=== PATIENT | male | born 1955 | race Caucasian/White ===

== ENCOUNTER 2019-07-03 11:13 | Emergency (ER) | payer BC ==
[2019-07-03 11:33] VITALS: BP 188/91; PULSE 76
[2019-07-03] MEDS ORDERED: Benzocaine 20% Topical Spray UD MUCMEM ONE (11:36)
[2019-07-03] MEDS ORDERED: Lidocaine 2% Viscous Solution 15 ML Cup PO ONE (11:36)
--- NOTE | 2019-07-03 11:36 | EDM.PDOC ---
ED HPI GENERAL MEDICAL PROBLEM - General Chief Complaint: General Stated Complaint: ABCESS TOOTH Time Seen by Provider: 07/03/19 11:19 Source of Information: Reports: Patient History Limitations: Reports: No Limitations - History of Present Illness INITIAL COMMENTS - FREE TEXT/NARRATIVE: HISTORY AND PHYSICAL: History of present illness: Patient is a 64-year-old male who presents to the emergency room today with complaints of dental pain and swelling to the right lower jawline for the past several days. He states that he has attempted to get a hold of the dentists but due to the holidays has not been able to be seen. He states he would like "a strong antibiotic and strong pain medication". He states due to the pain he has not been able to sleep well at night. Patient denies any fever, chills, headache , change in vision, syncope or near syncope. Denies any chest pain, back pain, shortness of breath or cough. Denies any abdominal pain, nausea, vomiting, diarrhea, constipation or dysuria. Has not noted any blood in urine or stool. Patient has been eating and drinking appropriately. Review of systems: As per history of present illness and below otherwise all systems reviewed and negative. Past medical history: As per history of present illness and as reviewed below otherwise noncontributory. Surgical history: As per history of present illness and as reviewed below otherwise noncontributory. Social history: See social history for further information Family history: As per history of present illness and as reviewed below otherwise noncontributory. Physical exam: General: Well-developed and well-nourished 46 showed male. Alert and oriented. Nontoxic appearing and in no acute distress. HEENT: Atraumatic, normocephalic, pupils equal and reactive bilaterally, negative for conjunctival pallor or scleral icterus, mucous membranes moist, gumline swelling and tenderness to right lower jaw, TMs normal bilaterally, throat clear no pillar shifting/swelling, neck supple, nontender, trachea midline. No drooling or trismus noted. No meningeal signs. No hot potato voice noted. Lungs: Clear to auscultation, breath sounds equal bilaterally. Heart: S1S2, regular rate and rhythm without overt murmur Abdomen: Soft, nondistended, obese, nontender. Skin: Intact, warm, dry. No lesions or rashes noted. Extremities: Atraumatic, moves all extremities per self without difficulty or deficits, negative for cords or calf pain. Neurovascular unremarkable. Neuro: Awake, alert, oriented. Cranial nerves II through XII unremarkable. Cerebellum unremarkable. Motor and sensory unremarkable throughout. Exam nonfocal. Notes: Patient states that he "needs some strong pain medicine" stating that he would like some OxyContin. I did educate the patient that I would not be prescribing this medication for him for a dental abscess and he would need those Medications through his primary care provider or his dentist. I am willing to give him some Tylenol No. 3 for his discomfort but supportive care measures were reviewed and discussed. He does request to speak with the nursing surveillance supervisor whom I have sent to his room per his request. Patient voices understanding of discharge instructions/plan. Denies any further questions or concerns at this time. Diagnostics: None Therapeutics: Dental Balls, [place] Prescription: Clindamycin, Tylenol #3 (#15) Impression: Dental abscess Plan: 1. Please take the antibiotic as prescribed. 2. Tylenol and/or ibuprofen as needed for pain management. "Tooth Balls" have been given to you; apply along the gumline every 2-3 hours as needed. Do not swallow these; external use only. 3. Follow-up with a dentist for definitive care. Return to the ED as needed and as discussed. Definitive disposition and diagnosis as appropriate pending reevaluation and review of above. R side of face Pain Score (Numeric/FACES): 10 - Related Data Allergies Allergy/AdvReac Type Severity Reaction Status Date / Time grass pollen Allergy Cannot Verified 07/03/19 11:33 Remember omeprazole [From Prilosec] Allergy Hypertensio Verified 10/15/15 10:31 n omeprazole magnesium Allergy Hypertensio Verified 10/15/15 10:31 [From Prilosec] n dust Allergy Cannot Uncoded 10/15/15 10:31 Remember tramadol Allergy Other Uncoded 07/03/19 11:33 Home Meds: Home Meds Benazepril [Lotensin] 20 mg PO DAILY #90 tablet 06/09/16 [Rx] Acetaminophen with Codeine [Tylenol with Codeine #3 Tablet] 1 each PO Q4HR PRN # 15 tablet 07/03/19 [Rx] Clindamycin HCl 300 mg PO TID 10 Days #30 capsule 07/03/19 [Rx] Past Medical History Cardiovascular History: Reports: Hypertension Gastrointestinal History: Reports: Other (See Below) Other Gastrointestinal History: pancreatitis Musculoskeletal History: Reports: Other (See Below) Other Musculoskeletal History: degenerative disk disease in back Endocrine/Metabolic History: Reports: Obesity/BMI 30+ Social & Family History - Family History Family Medical History: Noncontributory Cardiac: Reports: CAD ED ROS GENERAL - Review of Systems Review Of Systems: Comprehensive ROS is negative, except as noted in HPI. ED EXAM, GENERAL - Physical Exam Exam: See Below (See dictation) Course - Vital Signs Last Recorded V/S: Last Vital Signs Temp 99.1 F 07/03/19 11:38 Pulse 76 07/03/19 11:28 Resp 18 07/03/19 11:28 BP 188/91 H 07/03/19 11:28 Pulse Ox 96 07/03/19 11:28 - Orders/Labs/Meds Meds: Medications Discontinued Medications Generic Name Dose Route Start Last Admin Trade Name Freq PRN Reason Stop Dose Admin Hydrocodone Bitart/Acetaminophen 2 tab 07/03/19 11:52 [place]uffs 325-5 Mg PO 07/03/19 11:53 ONETIME ONE Benzocaine 2 each 07/03/19 11:36 Hurricaine One 20% MUCMEM 07/03/19 11:37 ONETIME ONE Lidocaine HCl 15 ml 07/03/19 11:36 Xylocaine 2% Viscous PO 07/03/19 11:37 ONETIME ONE Departure - Departure Time of Disposition: 11:34 Disposition: Home, Self-Care 01 Clinical Impression: Dental abscess - Discharge Information Prescriptions: Acetaminophen with Codeine [Tylenol with Codeine #3 Tablet] 1 each PO Q4HR PRN # 15 tablet PRN Reason: Pain Clindamycin HCl 300 mg PO TID 10 Days #30 capsule Instructions: Dental Abscess, [id number] Referrals: PCP,None [Primary Care Provider] - Forms: ED Department Discharge Additional Instructions: The following information is given to patients seen in the emergency department who are being discharged to home. This information is to outline your options for follow-up care. We provide all patients seen in our emergency department with a follow-up referral. The need for follow-up, as well as the timing and circumstances, are variable depending upon the specifics of your emergency department visit. If you don't have a primary care physician on staff, we will provide you with a referral. We always advise you to contact your personal physician following an emergency department visit to inform them of the circumstance of the visit and for follow-up with them and/or the need for any referrals to a consulting specialist. The emergency department will also refer you to a specialist when appropriate. This referral assures that you have the opportunity for follow-up care with a specialist. All of these measure are taken in an effort to provide you with optimal care, which includes your follow-up. Under all circumstances we always encourage you to contact your private physician who remains a resource for coordinating your care. When calling for follow-up care, please make the office aware that this follow-up is from your recent emergency room visit. If for any reason you are refused follow-up, please contact the [facility] Emergency Department at and asked to speak to the emergency department charge nurse. [facility] [address] [place] [id number] [facility] [address] [place] [address] 1. Please take the antibiotic as prescribed. 2. Tylenol and/or ibuprofen as needed for pain management. "Tooth Balls" have been given to you; apply along the gumline every 2-3 hours as needed. Do not swallow these; external use only. 3. Follow-up with a dentist for definitive care. Return to the ED as needed and as discussed. Sepsis Event Note - Evaluation Sepsis Screening Result: No Definite Risk - Focused Exam Vital Signs: Vital Signs Temp Pulse Resp BP Pulse Ox 07/03/19 11:38 99.1 F 07/03/19 11:28 99.1 F 76 18 188/91 H 96 Date Exam was Performed: 07/03/19 Time Exam was Performed: 11:56
[2019-07-03] MEDS ORDERED: Acetaminophen/HYDROcodone 325-5 MG Tab PO ONE (11:52)
== END 2019-07-03 12:11 | disposition home or self-care (01) ==
LOC: MW.ED 11:13
DX: K04.7 Periapical abscess without sinus (principal); I10 Essential (primary) hypertension; E66.9 Obesity, unspecified; Z68.38 Body mass index [BMI] 38.0-38.9, adult; Z88.6 Allergy status to analgesic agent; Z91.048 Other nonmedicinal substance allergy status; Z88.8 Allergy status to other drugs, medicaments and biological substances
CPT/HCPCS: 99282; A9270

== ENCOUNTER 2019-07-03 18:20 | Emergency (ER) | payer BC ==
[2019-07-03] MEDS ORDERED: methylPREDNISolone Sodium Succinate 125 MG/2 ML SDV IVPUSH ONE (18:38)
[2019-07-03] MEDS ORDERED: Ketorolac 30 MG/ML SDV IVPUSH ONE (18:38)
--- NOTE | 2019-07-03 18:46 | EDM.PDOC ---
ED HPI GENERAL MEDICAL PROBLEM - General Chief Complaint: Allergic Reaction Stated Complaint: ALLERGIC REACTION Time Seen by Provider: 07/03/19 18:39 Source of Information: Reports: Patient History Limitations: Reports: No Limitations - History of Present Illness INITIAL COMMENTS - FREE TEXT/NARRATIVE: HISTORY AND PHYSICAL: History of present illness: Patient is a 64-year-old male who presents to the emergency room for the second time today with concerns of increased swelling of a dental abscess. Patient states that he started taking the clindamycin which he feels he is having an allergic reaction to and he had increased swelling of the right lower jawline and to the corner of his mouth (lips). He states he has never taken clindamycin before and believes this is causing the increase in swelling. He also has a dull mild headache, subjective fever and chills. He denies any respiratory involvement nor difficulty swallowing/drooling. Patient denies any change in vision, syncope or near syncope. Denies any chest pain, back pain, shortness of breath or cough. Denies any abdominal pain, nausea , vomiting, diarrhea, constipation or dysuria. Has not noted any blood in urine or stool. Patient has been eating and drinking appropriately. Review of systems: As per history of present illness and below otherwise all systems reviewed and negative. Past medical history: As per history of present illness and as reviewed below otherwise noncontributory. Surgical history: As per history of present illness and as reviewed below otherwise noncontributory. Social history: See social history for further information Family history: As per history of present illness and as reviewed below otherwise noncontributory. Physical exam: General: Well-developed and well-nourished 64-year-old male. Alert and oriented. HEENT: Soft tissue swelling to right lower jaw line, normocephalic, pupils equal and reactive bilaterally, negative for conjunctival pallor or scleral icterus, mucous membranes moist, TMs normal bilaterally, throat clear without pillar shifting, neck supple, nontender, trachea midline. No drooling or trismus noted. No meningeal signs. No hot potato voice noted. Lungs: Clear to auscultation, breath sounds equal bilaterally, chest nontender. Heart: S1S2, regular rate and rhythm without overt murmur Abdomen: Soft, nondistended, nontender. Negative for masses or hepatosplenomegaly. Negative for costovertebral tenderness. Pelvis: Stable nontender. Skin: Intact, warm, dry. No lesions or rashes noted. Extremities: Atraumatic, moves all extremities per self without difficulty or deficits, negative for cords or calf pain. Neurovascular unremarkable. Neuro: Awake, alert, oriented. Cranial nerves II through XII unremarkable. Cerebellum unremarkable. Motor and sensory unremarkable throughout. Exam nonfocal. Notes: Patient declined Benadryl, stating he believes he is allergic. Right perimandibular soft tissue edema and phlegmon, with soft tissue edema extending into the right submandibular space and neck. No discrete peripherally enhancing soft tissue collection seen at this time. The findings could be related to right mandibular dental or periodontal disease. Correlate clinically. Paranasal sinus disease. Polypoid soft tissue densities within the nasal cavity. Patient wants to be discharged with new script for PCN. We discussed signs and symptoms that would prompt him to return to the ED. Supportive care measures were reviewed and discussed. Voices understanding and is agreeable to plan of care. Denies any further questions or concerns at this time. Diagnostics: CBC, CMP, Soft Tissue Neck CT Therapeutics: IV fluids, Toradol, Solu-Medrol Prescription: Penicillin Impression: Allergic reaction Dental abscess Plan: 1. STOP the Clindamycin. Start the Penicillin when able. While symptomatic continue to routinely take Benadryl 50mg every 4-6 hours and Zantac 150mg twice daily. 2. Continue to follow up with your dentist as you have been directed 3. Return to the ED as needed and as discussed. Definitive disposition and diagnosis as appropriate pending reevaluation and review of above. Tooth/Teeth Pain Score (Numeric/FACES): 7 - Related Data Allergies Allergy/AdvReac Type Severity Reaction Status Date / Time clindamycin Allergy Swelling Verified 07/03/19 21:42 grass pollen Allergy Cannot Verified 07/03/19 18:40 Remember omeprazole [From Prilosec] Allergy Hypertensio Verified 07/03/19 18:40 n omeprazole magnesium Allergy Hypertensio Verified 07/03/19 18:40 [From Prilosec] n dust Allergy Cannot Uncoded 10/15/15 10:31 Remember tramadol Allergy Other Uncoded 07/03/19 11:33 Home Meds: Home Meds Benazepril [Lotensin] 20 mg PO DAILY #90 tablet 06/09/16 [Rx] Acetaminophen with Codeine [Tylenol with Codeine #3 Tablet] 1 each PO Q4HR PRN # 15 tablet 07/03/19 [Rx] Clindamycin HCl 300 mg PO TID 10 Days #30 capsule 07/03/19 [Rx] Past Medical History Cardiovascular History: Reports: Hypertension Gastrointestinal History: Reports: Other (See Below) Other Gastrointestinal History: pancreatitis Musculoskeletal History: Reports: Other (See Below) Other Musculoskeletal History: degenerative disk disease in back Other Psychiatric History: Insomnia Endocrine/Metabolic History: Reports: Obesity/BMI 30+ - Infectious Disease History Infectious Disease History: Reports: Chicken Pox Social & Family History - Family History Family Medical History: Noncontributory Cardiac: Reports: CAD ED ROS ALLERGIC REACTION - Review of Systems Review Of Systems: Comprehensive ROS is negative, except as noted in HPI. ED EXAM GENERAL NO PERIP PULSE - Physical Exam Exam: See Below (See dictation) Course - Vital Signs Last Recorded V/S: Last Vital Signs Temp 98.1 F 07/03/19 20:26 Pulse 73 07/03/19 20:26 Resp 18 07/03/19 20:26 BP 146/79 H 07/03/19 20:26 Pulse Ox 96 07/03/19 20:26 - Orders/Labs/Meds Orders: Active Orders 24 hr Category Date Time Status Sodium Chloride 0.9% [Normal Saline] 1,000 ml Med 07/03/19 18:51 Active IV STAT Medication Orders Sodium Chloride (Normal Saline) 1,000 mls @ 125 mls/hr IV STAT ONE Stop: 07/04/19 02:50 Last Admin: 07/03/19 19:03 Dose: 125 mls/hr Labs: Laboratory Tests 07/03/19 07/03/19 07/03/19 Range/Units 18:58 18:58 18:58 WBC 12.75 H (4.0-11.0) K/uL RBC 5.18 (4.50-5.90) M/uL Hgb 15.6 (13.0-17.0) g/dL Hct 44.6 (38.0-50.0) % MCV 86.1 (80.0-98.0) fL MCH 30.1 (27.0-32.0) pg MCHC 35.0 (31.0-37.0) g/dL RDW Std Deviation 42.6 (28.0-62.0) fl RDW Coeff of Mukul 14 (11.0-15.0) % Plt Count 184 (150-400) K/uL MPV 10.00 (7.40-12.00) fL Neut % (Auto) 73.5 (48.0-80.0) % Lymph % (Auto) 13.0 L (16.0-40.0) % [place] % (Auto) 12.4 (0.0-15.0) % Eos % (Auto) 0.9 (0.0-7.0) % Baso % (Auto) 0.2 (0.0-1.5) % Neut # (Auto) 9.4 H (1.4-5.7) K/uL Lymph # (Auto) 1.7 (0.6-2.4) K/uL [place] # (Auto) 1.6 H (0.0-0.8) K/uL Eos # (Auto) 0.1 (0.0-0.7) K/uL Baso # (Auto) 0.0 (0.0-0.1) K/uL Nucleated RBC % 0.0 /100WBC Nucleated RBCs # 0 K/uL Lactate 0.9 (0.20-2.00) mmol/L Sodium 137 (136-148) mmol/L Potassium 3.8 (3.5-5.1) mmol/L Chloride 103 (98-107) mmol/L Carbon Dioxide 23.7 (21.0-32.0) mmol/L BUN 10 (7.0-18.0) mg/dL Creatinine 0.8 (0.8-1.3) mg/dL Est Cr Clr Drug Dosing 108.46 mL/min Estimated GFR (MDRD) > 60.0 ml/min Glucose 104 (74-106) mg/dL Calcium 8.7 (8.5-10.1) mg/dL Total Bilirubin 0.8 (0.2-1.0) mg/dL AST 18 (15-37) IU/L ALT 30 (14-63) IU/L Alkaline Phosphatase 142 H (46-116) U/L Total Protein 7.5 (6.4-8.2) g/dL Albumin 3.5 (3.4-5.0) g/dL Globulin 4.0 (2.6-4.0) g/dL Albumin/Globulin Ratio 0.9 (0.9-1.6) Meds: Medications Generic Name Dose Route Start Last Admin Trade Name Freq PRN Reason Stop Dose Admin Sodium Chloride 1,000 mls @ 125 mls/hr 07/03/19 18:51 07/03/19 19:03 Normal Saline IV 07/04/19 02:50 125 mls/hr STAT ONE Administration Discontinued Medications Generic Name Dose Route Start Last Admin Trade Name Freq PRN Reason Stop Dose Admin Iopamidol 100 ml 07/03/19 20:46 Isovue-370 (76%) IVPUSH 07/03/19 20:47 ONETIME ONE Iopamidol 100 ml 07/03/19 20:53 07/03/19 20:54 Isovue Multipack-370 (76%) IVPUSH 07/03/19 20:54 100 ml ONETIME ONE Administration Ketorolac Tromethamine 30 mg 07/03/19 18:38 07/03/19 19:07 Toradol IVPUSH 07/03/19 18:39 30 mg ONETIME ONE Administration Methylprednisolone Sodium Succinate 125 mg 07/03/19 18:38 07/03/19 19:05 Solu-Medrol IVPUSH 07/03/19 18:39 125 mg ONETIME ONE Administration Departure - Departure Time of Disposition: 21:58 Disposition: Home, Self-Care 01 Clinical Impression: Dental abscess Allergic reaction caused by a drug Qualifiers: Encounter type: initial encounter Qualified Code(s): T78.40XA - Allergy, unspecified, initial encounter - Discharge Information Referrals: PCP,None [Primary Care Provider] - Additional Instructions: The following information is given to patients seen in the emergency department who are being discharged to home. This information is to outline your options for follow-up care. We provide all patients seen in our emergency department with a follow-up referral. The need for follow-up, as well as the timing and circumstances, are variable depending upon the specifics of your emergency department visit. If you don't have a primary care physician on staff, we will provide you with a referral. We always advise you to contact your personal physician following an emergency department visit to inform them of the circumstance of the visit and for follow-up with them and/or the need for any referrals to a consulting specialist. The emergency department will also refer you to a specialist when appropriate. This referral assures that you have the opportunity for follow-up care with a specialist. All of these measure are taken in an effort to provide you with optimal care, which includes your follow-up. Under all circumstances we always encourage you to contact your private physician who remains a resource for coordinating your care. When calling for follow-up care, please make the office aware that this follow-up is from your recent emergency room visit. If for any reason you are refused follow-up, please contact the [facility] Emergency Department at and asked to speak to the emergency department charge nurse. [facility] [address] [place] [id number] [place] [address] 1. STOP the Clindamycin. Start the Penicillin when able. While symptomatic continue to routinely take Benadryl 50mg every 4-6 hours and Zantac 150mg twice daily. 2. Continue to follow up with your dentist as you have been directed 3. Return to the ED as needed and as discussed. Sepsis Event Note - Focused Exam Vital Signs: Vital Signs Temp Pulse Resp BP Pulse Ox 07/03/19 20:26 98.1 F 73 18 146/79 H 96 07/03/19 19:10 99.2 F 72 18 158/79 H 96 07/03/19 18:38 99.3 F 85 18 190/92 H 95 Date Exam was Performed: 07/03/19 Time Exam was Performed: 21:59 - My Orders Last 24 Hours: My Active Orders 07/03/19 18:51 Sodium Chloride 0.9% [Normal Saline] 1,000 ml IV STAT - Assessment/Plan Last 24 Hours: My Active Orders 07/03/19 18:51 Sodium Chloride 0.9% [Normal Saline] 1,000 ml IV STAT
[2019-07-03] MEDS ORDERED: Sodium Chloride 0.9% 1,000 ML IV ONE (18:51)
[2019-07-03 19:27] LABS: BLOOD UREA NITROGEN,BUN 10 mg/dL (7.0-18.0); CARBON DIOXIDE,CO2 23.7 mmol/L (21.0-32.0); CHLORIDE,CL 103 mmol/L (98-107); GLUCOSE RANDOM 104 mg/dL (74-106); POTASSIUM,K 3.8 mmol/L (3.5-5.1); SODIUM,NA 137 mmol/L (136-148)
[2019-07-03] MEDS ORDERED: Iopamidol 755 Mg/ML 100 ML Bottle IVPUSH ONE (20:46)
[2019-07-03] MEDS ORDERED: Iopamidol 755 MG/ML 200 ML Multipack Bottle IVPUSH ONE (20:53)
--- NOTE | 2019-07-03 21:54 | CT ---
INDICATION: Right dental abscess TECHNIQUE: CT soft tissue of the neck was acquired with IV contrast. 75 mL of Isovue 370 administered. COMPARISON: None available FINDINGS: There is right perimandibular and submandibular soft tissue swelling and edema with probable phlegmon adjacent to the right mandible, however, a discrete peripherally enhancing fluid collection is not seen at this time. There are regional dental caries, as well as an ovoid osseous lucency adjacent to the roof of a right mandibular molar consistent with periodontal disease/periapical cyst. There is extension of soft tissue edema in the right neck, superficial and deep to the right platysma, with mild thickening of the platysma. The nasopharynx, oropharynx, hypopharynx and larynx are patent. No tonsillar or peritonsillar collection is seen. There are polypoid soft tissue densities within the posterior nasal cavity. The parotid, submandibular and sublingual glands are within normal limits. No discrete thyroid abnormality is seen. No abnormally enlarged cervical lymph nodes are seen. Shotty subcentimeter right submandibular lymph nodes are probably reactive. There is paranasal sinus mucosal thickening. There is opacification of some left mastoid tip air cells. There are degenerative changes in the cervical spine. IMPRESSION: Right perimandibular soft tissue edema and phlegmon, with soft tissue edema extending into the right submandibular space and neck. No discrete peripherally enhancing soft tissue collection seen at this time. The findings could be related to right mandibular dental or periodontal disease. Correlate clinically. Paranasal sinus disease. Polypoid soft tissue densities within the nasal cavity. Correlate with ENT evaluation. Dictated by Siddharth Baeza MD @ 07/03/2019 9:47:00 PM Please note that all CT scans at this facility use dose modulation, iterative reconstruction, and/or weight-based dosing when appropriate to reduce radiation dose to as low as reasonably achievable. Dictated by: Siddharth Baeza MD @ 07/03/2019 21:52:08 (Electronically Signed)
[2019-07-03 22:37] VITALS: BP 140/80; PULSE 70
== END 2019-07-03 22:23 | disposition home or self-care (01) ==
LOC: MW.ED 18:20
DX: K04.7 Periapical abscess without sinus (principal); T36.8X5A Adverse effect of other systemic antibiotics, initial encounter; I10 Essential (primary) hypertension; E66.9 Obesity, unspecified; Z68.38 Body mass index [BMI] 38.0-38.9, adult; Z88.1 Allergy status to other antibiotic agents; Z88.6 Allergy status to analgesic agent; Z91.09 Other allergy status, other than to drugs and biological substances; Z88.8 Allergy status to other drugs, medicaments and biological substances; Z79.899 Other long term (current) drug therapy
CPT/HCPCS: 70491; 80053; 83605; 85025; 96361; 96374; 96375; 99284; J1885; J2930; J7030; Q9967